=== PATIENT | male | born 1935 | race Caucasian/White ===

== ENCOUNTER 2024-06-27 16:51 | Emergency (ER) | payer MEDICARE ==
[~2024-06-27 16:51] MED LIST: Iopamidol 370 76% 100 ML VIAL ONE
[2024-06-27 18:40] LABS: Actual Bicarbonate (HCO3v) 22.2 mEq/L (22-28); Analyzer IN Cardio CS ER; Base Excess -1.6 mEq/L (-2 - +2); Calcium, Ionized (venous) 1.15 mmol/L (1.16-1.32); Chloride (VBG) 98 mmol/L (98-106); Hematocrit-VBG 38 % (42.0-52.0); Hemoglobin (Hb) 12.8 g/dL (12.6-17.4); Potassium (VBG) 3.78 mmol/L (3.70-5.30); Puncture Site Other Site; RapidComm Collect By lab; Sodium 134 mmol/L (133-146); pH (venous) 7.422 (7.32-7.43)
[2024-06-27 19:07] LABS: Hematocrit 33.9 % (38.8-50.0); Hemoglobin 11.6 g/dL (13.5-17.5); Mean Corpuscular HGB CONC 34.2 g/dL (32.0-36.0); Mean Corpuscular Hemoglobin 29.2 pg (27.0-33.0); Mean Corpuscular Volume 85.4 fL (81.2-95.1); Platelet Count 168 10x3/uL (150-450); RBC Distribution Width 18.9 % (11.5-14.5); Red Blood Cell (RBC) Count 3.97 10x6/uL (4.32-5.72); White Blood Cell (WBC) Count 8.6 10x3/uL (3.5-10.5)
[2024-06-27 19:08] LABS: MDiff Complete? YES
[2024-06-27 19:20] LABS: ALT (SGPT) 22 U/L (8-55); AST (SGOT) 17 U/L (5-34); Albumin 4.3 g/dL (3.4-4.8); Alkaline Phosphatase 59 U/L (40-110); Anion Gap 16 mmol/L (10-20); BUN (Urea Nitrogen) 35 mg/dL (8.4-25.7); Bilirubin, Total 1.1 mg/dL (0.2-1.2); Calc. Creatinine Clearance 0 mL/min (70-130); Calcium 9.5 mg/dL (7.8-10.44); Carbon Dioxide 21 mmol/L (23-31); Chloride 100 mmol/L (98-107); Estimated GFR 72; Globulin 3.1 g/dL (2.4-3.5); Glucose 111 mg/dL (83-110); Lipase 52 U/L (8-78); Magnesium 2.3 mg/dL (1.6-2.6); Potassium 3.8 mmol/L (3.5-5.1); Protein, Total 7.4 g/dL (5.8-8.1); Sodium 133 mmol/L (136-145)
[2024-06-27 19:27] LABS: Troponin I Less than 0.010 ng/mL (< 0.028)
[2024-06-27 19:44] LABS: Bilirubin Neg (Negative); Blood, Urine Negative (Negative); Clarity Clear (Clear); Glucose, Urine (Dipstick) Normal (Negative); Ketone, Urine 5 mg/dL (Negative); Leukocyte Negative (Negative); Nitrite Negative (Negative); Protein, Urine (Dipstick) Negative (Neg-Trace); Specific Gravity, Urine 1.015 (1.005-1.030); Urobilinogen Normal mg/dL (Less than 2)
[2024-06-27 20:03] LABS: Bacteria/HPF 1+ HPF (None Seen); CAUTI Indications for Culture Alt mental st,lethar; RBC/HPF 0-3 HPF (0-3); Squamous Epithelial 0-3 HPF (0-3); WBC/HPF 0-3 HPF (0-3)
[2024-06-27 20:04] LABS: Mucous/LPF Rare LPF (<2+); Urine Culture Reflex No No
[2024-06-27 21:41] LABS: Lymphocytes 21 % (21-51); Monocytes 17 % (0-10); Neutrophil 62 % (42-75)
[2024-06-27 21:44] LABS: Anisocytosis MODERATE=16-30 cells (100X) (0-5/hpf); Poikilocytosis MODERATE=16-30 cells (100X) (0-5/hpf)
[2024-06-27 21:45] LABS: Elliptocytes SLIGHT = 2-5 cells (100X) (0-1/hpf)
[2024-06-27 21:46] LABS: Burr Cells SLIGHT = 2-5 cells (100X) (0-1/hpf); Tear Drops SLIGHT = 2-5 cells (100X) (0-1/hpf)
[2024-06-27 21:47] LABS: Platelet Adequacy Comment Platelets Normal
== END 2024-06-27 22:24 | disposition home or self-care (01) ==
LOC: CSHERS 16:51
DX: R53.1 Weakness (principal); R63.0 Anorexia; R42 Dizziness and giddiness; D64.9 Anemia, unspecified; R91.1 Solitary pulmonary nodule; I10 Essential (primary) hypertension
CPT/HCPCS: 71045; 74177; 81001; 82805; 82962; 83605; 83690; 83735; 84484; 87428; 93005; 99285; Q9967; 36416; 80053; 84443; 85025

== ENCOUNTER 2024-08-20 15:43 | Emergency (ER) | payer MEDICARE ==
[2024-08-20 16:39] LABS: Bilirubin Neg (Negative); Blood, Urine 250 (Negative); Clarity Cloudy (Clear); Glucose, Urine (Dipstick) Normal (Negative); Ketone, Urine Negative (Negative); Leukocyte 100 (Negative); Nitrite Positive (Negative); Protein, Urine (Dipstick) 100 mg/dl (Neg-Trace); Specific Gravity, Urine 1.025 (1.005-1.030)
[2024-08-20 16:49] LABS: Bacteria/HPF 1+ HPF (None Seen); CAUTI Indications for Culture Acute Hematuria; Mucous/LPF Rare LPF (<2+); RBC/HPF Greater than 50 HPF (0-3); Squamous Epithelial 0-3 HPF (0-3)
[2024-08-20 16:50] LABS: Urine Culture Reflex No No
[2024-08-20 18:40] LABS: Hematocrit 35.2 % (38.8-50.0); Hemoglobin 11.9 g/dL (13.5-17.5); Mean Corpuscular HGB CONC 33.8 g/dL (32.0-36.0); Mean Corpuscular Hemoglobin 29.9 pg (27.0-33.0); Mean Corpuscular Volume 88.4 fL (81.2-95.1); RBC Distribution Width 17.7 % (11.5-14.5); Red Blood Cell (RBC) Count 3.98 10x6/uL (4.32-5.72); White Blood Cell (WBC) Count 7.5 10x3/uL (3.5-10.5)
[2024-08-20 18:41] LABS: Platelet Count 112 10x3/uL (150-450)
[2024-08-20 18:48] LABS: ALT (SGPT) 15 U/L (8-55); AST (SGOT) 15 U/L (5-34); Albumin 4.2 g/dL (3.4-4.8); Alkaline Phosphatase 60 U/L (40-110); Anion Gap 14 mmol/L (10-20); BUN (Urea Nitrogen) 17 mg/dL (8.4-25.7); Bilirubin, Total 0.8 mg/dL (0.2-1.2); Calc. Creatinine Clearance 0 mL/min (70-130); Calcium 9.4 mg/dL (7.8-10.44); Carbon Dioxide 25 mmol/L (23-31); Chloride 104 mmol/L (98-107); Estimated GFR 84; Globulin 2.7 g/dL (2.4-3.5); Glucose 106 mg/dL (83-110); Potassium 4.2 mmol/L (3.5-5.1); Protein, Total 6.9 g/dL (5.8-8.1); Sodium 139 mmol/L (136-145)
[2024-08-20] MEDS ORDERED: LevoFLOXacin 750 MG TAB ONE (19:03)
[2024-08-20 19:07] LABS: MDiff Complete? YES
[2024-08-20 19:26] LABS: Lymphocytes 20 % (21-51); Monocytes 19 % (0-10); Neutrophil 60 % (42-75)
[2024-08-20 19:28] LABS: Platelet Adequacy Comment Appears Decreased
[2024-08-20 19:30] LABS: Anisocytosis SLIGHT = 6-15 cells (100X) (0-5/hpf)
== END 2024-08-20 19:14 | disposition home or self-care (01) ==
LOC: CSHERS 15:43
DX: N39.0 Urinary tract infection, site not specified (principal); R31.9 Hematuria, unspecified; I10 Essential (primary) hypertension
CPT/HCPCS: 36415; 74176; 80053; 81001; 85025

== ENCOUNTER 2024-09-13 12:23 | Outpatient (CLI) | payer MEDICARE | END 2024-09-13 12:24 | disposition home or self-care (01) | LOC: CSHMRI 12:23 | PROVIDERS: ATTEND Urology | DX: N40.2 Nodular prostate without lower urinary tract symptoms (principal) | CPT/HCPCS: 72197 ==

== ENCOUNTER 2024-09-19 07:12 | Emergency (ER) | payer MEDICARE ==
[2024-09-19 08:28] LABS: Hematocrit 31.9 % (38.8-50.0); Hemoglobin 10.5 g/dL (13.5-17.5); Mean Corpuscular HGB CONC 32.9 g/dL (32.0-36.0); Mean Corpuscular Hemoglobin 29.1 pg (27.0-33.0); Mean Corpuscular Volume 88.4 fL (81.2-95.1); Platelet Count 121 10x3/uL (150-450); RBC Distribution Width 16.5 % (11.5-14.5); Red Blood Cell (RBC) Count 3.61 10x6/uL (4.32-5.72); White Blood Cell (WBC) Count 15.16 10x3/uL (3.5-10.5)
[2024-09-19 08:34] LABS: Calcium 8.4 mg/dL (7.8-10.44); Chloride 106 mmol/L (98-107); Potassium 3.8 mmol/L (3.5-5.1); Sodium 138 mmol/L (136-145)
[2024-09-19 08:55] LABS: ALT (SGPT) 14 U/L (8-55); AST (SGOT) 14 U/L (5-34); Albumin 3.7 g/dL (3.4-4.8); Alkaline Phosphatase 58 U/L (40-110); Anion Gap 15 mmol/L (10-20); BUN (Urea Nitrogen) 18 mg/dL (8.4-25.7); Calc. Creatinine Clearance 0 mL/min (70-130); Carbon Dioxide 21 mmol/L (23-31); Estimated GFR 84; Globulin 2.4 g/dL (2.4-3.5); Glucose 119 mg/dL (83-110); Lipase 18 U/L (8-78); Magnesium 2.1 mg/dL (1.6-2.6); Protein, Total 6.1 g/dL (5.8-8.1)
[2024-09-19 08:58] LABS: Anisocytosis SLIGHT = 6-15 cells (100X) (0-5/hpf); Giant Platelets SLIGHT HPF (0-5); Lymphocytes 3 % (21-51); MDiff Complete? YES; Monocytes 28 % (0-10); Neutrophil 64 % (42-75); Platelet Adequacy Comment Appears Decreased; Reactive Lymphocytes 5 % (0-10)
[2024-09-19] MEDS ORDERED: Iopamidol 300 61% 100 ML VIAL FS ONE (09:33)
[2024-09-19] MEDS ORDERED: Amoxicillin/Potassium Clav 875 MG TAB ONE (11:15)
[2024-09-19] MEDS ORDERED: Polyethylene Glycol 3350 17 GM Packet PO SCH (11:45)
== END 2024-09-19 11:55 | disposition home or self-care (01) ==
LOC: CSHERS 07:12
DX: K57.32 Diverticulitis of large intestine without perforation or abscess without bleeding (principal); K59.00 Constipation, unspecified; I10 Essential (primary) hypertension
CPT/HCPCS: 36415; 74177; 80053; 83690; 83735; 85025; Q9967